=== PATIENT | female | born 1960 | race Caucasian/White ===

== ENCOUNTER 2016-10-26 20:13 | Emergency (ER) | payer OTHER ==
[~2016-10-26] VITALS: Ht 162.6 cm; Wt 74.5 kg
[~2016-10-26 20:13] MED LIST: BACTDS PO; CEPH-443 PO; IBUP-1542 PO
[2016-10-26 21:38] VITALS: Ht 162.6 cm; Wt 74.5 kg
[2016-10-26] MEDS ORDERED: HC30CR25 TOP (22:40)
[2016-10-26] MEDS ORDERED: BEN50 PO (22:40)
[2016-10-26] MEDS ORDERED: BEN25 PO (22:40)
--- NOTE | 2016-10-26 22:46 | ERD ---
ER Documentation Chief Complaint Date/Time DATE: 10/26/16 TIME: 22:45 Chief Complaint hives all over body x 1 week HPI 56-year-old female presenting to the emergency room with Scattered erythematous itchy lesions throughout body for the past week. Patient states they are very itchy. She has not tried any medications for this. Denies any shortness of breath. ROS All systems reviewed and are negative except as per history of present illness. Medications Home Meds Active Scripts Hydrocortisone* Topical (Hydrocortisone* Topical) 2.5%-28.3 Gm Cream..g., 1 APPLIC TOP BID for 10 Days, #1 TUB Prov:ANA LILIA HERNANDEZ PA-C 10/26/16 Diphenhydramine Hcl* (Benadryl*) 25 Mg Cap, 25 MG PO Q6 Y for ITCHING/RASH, #30 TAB Prov:ANA LILIA HERNANDEZ PA-C 10/26/16 Diphenhydramine Hcl* (Benadryl*) 50 Mg Cap, 50 MG PO Q6H Y for ITCHING/RASH, # 30 CAP Prov:ANA LILIA HERNANDEZ PA-C 10/26/16 Ibuprofen* (Motrin*) 600 Mg Tab, 600 MG PO Q6H Y for PAIN AND OR ELEVATED TEMP, #30 TAB Prov:ISAEL MARK NP 02/12/16 Sulfamethoxazole-Trimethoprim* (Bactrim* DS) 800-160 Mg Tab, 1 TAB PO BID for 10 Days, TAB Prov:ISAEL MARK NP 02/12/16 Cephalexin* (Keflex*) 500 Mg Capsule, 500 MG PO QID for 10 Days, CAP Prov:ISAEL MARK NP 02/12/16 Allergies Allergies: Coded Allergies: No Known Allergy (Unverified , 02/11/16) PMhx/Soc History of Surgery: Yes () Anesthesia Reaction: No Hx Neurological Disorder: No Hx Respiratory Disorders: No Hx Cardiac Disorders: No Hx Psychiatric Problems: No Hx Miscellaneous Medical Probl: No Hx Alcohol Use: Yes (occasionally) Hx Substance Use: No Hx Tobacco Use: Yes Smoking Status: Current every day smoker Physical Exam Vitals Vital Signs Date Time Temp Pulse Resp B/P Pulse Ox O2 Delivery O2 Flow Rate FiO2 10/26/16 21:38 98.5 86 20 165/77 100 Physical Exam Const: Well-developed well-nourished no acute distress Head: Atraumatic Eyes: Normal Conjunctiva ENT: Normal External Ears, Nose and Mouth. Neck: Full range of motion..~ No meningismus. Resp: Clear to auscultation bilaterally Cardio: Regular rate and rhythm, no murmurs Abd: Soft, non tender, non distended. Normal bowel sounds Skin: few scattered Erythematous papulates thoughtout body Back: No midline or flank tenderness Ext: No cyanosis, or edema Neur: Awake and alert Psych: Normal Mood and Affect Procedures/MDM This is a 56-year-old female presenting to the emergency department with signs and symptoms most consistent with a insect bites and stings. There is no evidence of secondary infection. At this time. There is no evidence of anaphylaxis, cellulitis. Patient was given prescription for hydrocortisone and Benadryl. Discussed the follow-up with primary care physician. Discussed return the ER for any worsening symptoms. Patient understands and agrees with Departure Diagnosis: Primary Impression: Insect bites and stings Condition: Stable Patient Instructions: Insect Bites and Stings Additional Instructions: FOLLOW UP WITH YOUR PRIMARY CARE PHYSICIAN TOMORROW.Return to this facility if you are not improving as expected. Take all medicines as directed. Return to this facility if you are not improving as expected. You have been given a medicine which may cause drowsiness.DO NOT DRIVE OR OPERATE DANGEROUS MACHINERY while taking this medicine! ANA LILIA HERNANDEZ PA-C Oct 26, 2016 22:46
== END 2016-10-26 23:17 | disposition home or self-care (01) ==
LOC: FTE 20:13
DX: T63.481A Toxic effect of venom of other arthropod, accidental (unintentional), initial encounter (principal); F17.210 Nicotine dependence, cigarettes, uncomplicated
CPT/HCPCS: 99283

== ENCOUNTER 2016-11-14 01:33 | Emergency (ER) | payer OTHER ==
[~2016-11-14] VITALS: Ht 160 cm; Wt 76.0 kg
[~2016-11-14 01:33] MED LIST changes: +BEN25 PO; +BEN50 PO; +HC30CR25 TOP
[2016-11-14 01:36] VITALS: Ht 160 cm; Wt 76.0 kg
[2016-11-14] MEDS ORDERED: HYDROCODONE/APAP (5/325) TAB PO ONE (02:30)
[2016-11-14] MEDS ORDERED: DIPHTH/TET/ACEL PERTUSS (ADULT) 0.5 ML VIAL IM* ONE (02:30)
[2016-11-14] MEDS ORDERED: BACITRACIN 0.9 GM OINT TOP ONE (03:30)
[2016-11-14] MEDS ORDERED: HYDR-906 PO (03:40)
[2016-11-14] MEDS ORDERED: IBUP400T22 PO (03:40)
[2016-11-14] MEDS ORDERED: AMOX1TAB10 PO (03:40)
--- NOTE | 2016-11-14 03:51 | ERD ---
ER Documentation Chief Complaint Date/Time DATE: 11/14/16 TIME: 03:46 Chief Complaint Pt reports her dog bit her in R hand 10 mins ago HPI This is a 56-year-old female presents to the ER after her dog bit her earlier today. Patient admits to pain near the dog bite site. Patient denies any fevers or chills. Bleeding was controlled before arriving to the ER. ROS 12 point review of systems was done, all negative except per HPI. Medications Home Meds Active Scripts Ibuprofen* (Motrin*) 400 Mg Tab, 400 MG PO Q6, #30 TAB Prov:JUDY ORTEGA 11/14/16 Hydrocodone/Acetaminophen (Shepherd 5-325 Tablet) 1 Each Tablet, 1 TAB PO Q6H Y for PAIN, #7 TAB Prov:JUDY ORTEGA 11/14/16 Amoxicillin/Potassium Clav (Amox-Clav 875-125 mg Tablet) 875-125 mg Tab, 1 TAB PO BID for 7 Days, #14 TAB Prov:JUDY ORTEGA 11/14/16 Hydrocortisone* Topical (Hydrocortisone* Topical) 2.5%-28.3 Gm Cream..g., 1 APPLIC TOP BID for 10 Days, #1 TUB Prov:ANA LLIIA HERNANDEZC 10/26/16 Diphenhydramine Hcl* (Benadryl*) 25 Mg Cap, 25 MG PO Q6 Y for ITCHING/RASH, #30 TAB Prov:ANA LILIA HERNANDEZ-C 10/26/16 Diphenhydramine Hcl* (Benadryl*) 50 Mg Cap, 50 MG PO Q6H Y for ITCHING/RASH, # 30 CAP Prov:ANA LILIA HERNANDEZC 10/26/16 Ibuprofen* (Motrin*) 600 Mg Tab, 600 MG PO Q6H Y for PAIN AND OR ELEVATED TEMP, #30 TAB Prov:ISAEL MARK NP 02/12/16 Sulfamethoxazole-Trimethoprim* (Bactrim* DS) 800-160 Mg Tab, 1 TAB PO BID for 10 Days, TAB Prov:ISAEL MARK NP 02/12/16 Cephalexin* (Keflex*) 500 Mg Capsule, 500 MG PO QID for 10 Days, CAP Prov:ISAEL MARK AVILA TAman BASSETT 02/12/16 Allergies Allergies: Coded Allergies: No Known Allergy (Unverified , 02/11/16) PMhx/Soc History of Surgery: Yes () Anesthesia Reaction: No Hx Neurological Disorder: No Hx Respiratory Disorders: No Hx Cardiac Disorders: No Hx Psychiatric Problems: No Hx Miscellaneous Medical Probl: No Hx Alcohol Use: Yes (occasionally) Hx Substance Use: No Hx Tobacco Use: Yes Smoking Status: Never smoker Physical Exam Vitals Vital Signs Date Time Temp Pulse Resp B/P Pulse Ox O2 Delivery O2 Flow Rate FiO2 11/14/16 01:36 97.7 85 16 161/76 100 Physical Exam GENERAL: The patient is well developed and appropriate for usual state of health , in no apparent distress. HEENT: Atraumatic. CHEST: Clear to auscultation bilaterally. There are no rales, wheezes or rhonchi. HEART: Regular rate and rhythm. No murmurs, clicks, rubs or gallops. NEURO: Alert and oriented. SKIN: There is a small 1 cm linear laceration where the dog bit the patient, 2 small puncture wounds. There is no surrounding erythema, there is slight swelling around the area. Results 24 hrs Current Medications Medications (Trade) Dose Ordered Sig/Abhijit Route PRN Reason Start Time Stop Time Status Last Admin Dose Admin Acetaminophen/ Hydrocodone Bitart (Shepherd (5/325)) 1 tab ONCE ONCE PO 11/14/16 02:30 11/14/16 02:31 DC 11/14/16 02:44 Diphtheria/ Tetanus/Acell Pertussis (Adacel) 0.5 ml ONCE ONCE IM* 11/14/16 02:30 11/14/16 02:31 DC 11/14/16 02:45 Bacitracin (Bacitracin Oint (Ud)) 1 applic ONCE ONCE TOP 11/14/16 03:30 11/14/16 03:31 DC 11/14/16 03:12 Procedures/MDM This is a 56-year-old female that presents to the ER after a dog bite. Patient wound was irrigated with copious amounts of normal saline, and dressed with bacitracin. At this time patient denies any sutures. Patient will be sent home with Augmentin. She was given Tdap here in the ER. Patient is to follow- up with her primary care doctor within 1-2 days return to ER sooner if symptoms worsen. My medical decision making sure with the patient she understands and agrees with plan. Departure Diagnosis: Primary Impression: Dog bite Condition: Stable Patient Instructions: Dog Bite Additional Instructions: Call your primary care doctor TOMORROW for an appointment during the next 1-2 days.See the doctor sooner or return here if your condition worsens before your appointment time. JUDY ORTEGA Nov 14, 2016 03:51
== END 2016-11-14 03:59 | disposition home or self-care (01) ==
LOC: FTE 01:33
DX: S61.431A Puncture wound without foreign body of right hand, initial encounter (principal); W54.0XXA Bitten by dog, initial encounter; Y92.9 Unspecified place or not applicable; Z23 Encounter for immunization
CPT/HCPCS: 90471; 90715; Z7502; Z7610

== ENCOUNTER 2018-11-11 07:59 | Emergency (ER) | payer OTHER ==
[~2018-11-11] VITALS: Ht 157.5 cm; Wt 78.0 kg
[~2018-11-11 07:59] MED LIST changes: +AMOX1TAB10 PO; +DOCU-144 PO; +GLYC1SUP92 PR; +HYDR-4011 PO; +IBUP-1561 PO
[2018-11-11 08:03] VITALS: BP 158/93; PULSE 93; RESP 18; Ht 157.5 cm; Wt 78.0 kg
[2018-11-11] MEDS ORDERED: GLYCERIN (ADULT) SUPP PR ONE (08:30)
== END 2018-11-11 09:47 | disposition home or self-care (01) ==
LOC: FTE 07:59
DX: K59.00 Constipation, unspecified (principal); F17.210 Nicotine dependence, cigarettes, uncomplicated
CPT/HCPCS: 74018; Z7502; Z7610